=== PATIENT | male | born 1995 | race Caucasian/White ===

== ENCOUNTER 2023-11-01 08:53 | Emergency (ER) | payer MEDICAID, SELFPAY ==
[2023-11-01 09:00] VITALS: BP 118/78; PULSE 106; RESP 14; TEMP 37.7; O2SAT 97; BMI 28.7
--- NOTE | 2023-11-01 09:25 | XR_ITS ---
Patient: ENE GARCIA Facility:?[facility] Patient ID:?[id number] Site Patient ID:?[id number]. Site :?[id number] Study:?XRay-Chest 2 VIEWS-11/01/2023 10:26:07 AM Ordering Physician:SAWYER Final Report: Indication: Cough Technique: PA and lateral views of the chest. Comparison: None. Findings: Mild peribronchial cuffing. Normal cardiomediastinal silhouette. No focal consolidation, pleural effusions, or visualized pneumothorax. Impression: Mild peribronchial cuffing is compatible with airways infection or inflammation. Dictated by Matt Phillips MD @ 11/01/2023 10:36:40 AM Signed by:?Matt Phillips MD @11/01/2023 10:36:40 AM (Electronic Signature)
--- NOTE | 2023-11-01 09:26 | ED.GENADULT ---
HPI - General Adult General Date Seen: 11/01/23 Chief complaint: Fever Stated complaint: fever since Time Seen by Provider: 11/01/23 09:05 Source: patient and family Mode of arrival: ambulatory Limitations: no limitations History of Present Illness HPI narrative: Patient is a 28-year-old male who has been sick since the or with flu symptoms and fever. His mom is with him and provides much of the history. He does tell me that he has had headache, cough, burning in his chest. His mom says that he was seen at [facility] on the , she was not with him but apparently reviewed all of the paperwork from there, they did a CT and a CT angiogram of his head, chandana blood although she is not sure what tests were done, he reports that they tested for COVID which was negative but did not do other testing. Mom says that he was given Toradol and no other instructions were given. He continues to have fever up to 101.3 just prior to coming into the ER although his temperature is 99.9 here without treatment for fever. He has not had vomiting or diarrhea. No recent travel. He smokes cigarettes, denies drug or alcohol use. No medication allergies although when I suggested giving ibuprofen his mom says that when he was 12 he had vomiting after being given ibuprofen and so she does not give that to him anymore. Related Data Home Medications Medication Instructions Recorded Confirmed No Known Home Medications 11/01/23 11/01/23 Allergies Allergy/AdvReac Type Severity Reaction Status Date / Time No Known Drug Allergies Allergy Verified 11/01/23 09:08 Review of Systems Status of ROS: Reports: 6 or more systems reviewed and unremarkable except as noted in History and below [facility] Social History Smoking Status: Never smoker How often do you have a drink containing alcohol: never AUDIT-C Alcohol total score: 0 Non-prescribed substance use: denies use Exam Narrative: Exam Narrative: Vital signs as noted above. In general, an alert, nontoxic young man. Looks somewhat fatigued. Head: Normocephalic, atraumatic. Eyes: Pupils are equal reactive. Extraocular movements are full. Conjunctivae are normal. ENT: Mucous membranes are moist. Throat is normal. TMs normal bilaterally. Neck: Supple without lymphadenopathy. No stridor. Heart: Mildly tachycardic, regular. No murmur. Lungs: A few scattered rhonchi, no fine crackles, no increased work of breathing or wheezing. Abdomen: Soft and nontender. No organomegaly. Extremities: Well perfused. No edema. No calf tenderness. Pulses intact. Neurologic: Patient is alert and oriented to person and place. Speech is fluent. Face is symmetric. Moves all extremities equally. Affect: Normal. Skin: Warm and dry. Well perfused. Const: Vital Signs, click to edit/add: Vital Signs - 24 hr 11/01/23 09:00 11/01/23 09:41 Temperature 99.9 F H 99.9 F H Pulse Rate [Pulse Oximeter] 106 H 106 H Respiratory Rate 14 14 Blood Pressure [Ri ght Arm] 111/67 Blood Pressure [Ri ght Upper Arm] 118/78 Pulse Oximetry 97 97 Oxygen Delivery Me thod Room Air Room Air Documenting provider has reviewed patient's vital signs: yes Course Course ED Course: Patient presents with flu symptoms for 5-6 days. Overall, symptoms seem likely to be viral, I did review his visit from [facility] on the . They did a CT of the head and a CT angiogram of the head and neck because of complaints of severe headache which was normal. He had a normal CBC, normal metabolic panel, negative COVID, influenza and RSV. I will recheck those just in case there was a false negative, I think that they would feel better if there were an official diagnosis. Will get a chest x-ray to rule out a pneumonia. Tylenol 1000 mg for low-grade fever and aches here. Chest x-ray by my review is negative, final radiology read notes some peribronchial cuffing, no consolidation. His labs remain normal, white blood cell count is 6, normal diff aside from a predominance of monocytes. His metabolic panel shows a CO2 of 34 today, otherwise normal. Viral testing today does show an positive influenza B, certainly consistent with his presentation. Discussed with him this time I think that the cause for all of his symptoms is influenza, no evidence of pneumonia, recommends supportive care, ibuprofen and/or Tylenol, fluids rest. Discussed reasons to return or see primary care such as persistence or worsening of symptoms beyond 10 days, worsening respiratory symptoms, etcetera. Vital Signs Vital signs: Initial Vital Signs Temperature 99.9 F H 11/01/23 09:00 Temperature Source Temporal Artery Scan 11/01/23 09:00 Pulse Rate 106 H 11/01/23 09:00 Pulse Rhythm Regular 11/01/23 09:00 Respiratory Rate 14 11/01/23 09:00 Blood Pressure 118/78 11/01/23 09:00 Blood Pressure Mean 91 11/01/23 09:00 Blood Pressure Position Sitting 11/01/23 09:00 Pulse Oximetry 97 11/01/23 09:00 Oxygen Delivery Method Room Air 11/01/23 09:00 Vital Signs Temperature 99.9 F H 11/01/23 09:00 Pulse Rate 106 H 11/01/23 09:00 Respiratory Rate 14 11/01/23 09:00 Blood Pressure 118/78 11/01/23 09:00 Pulse Oximetry 97 11/01/23 09:00 Oxygen Delivery Method Room Air 11/01/23 09:00 Temperature 99.9 F H 11/01/23 09:41 Pulse Rate 106 H 11/01/23 09:41 Respiratory Rate 14 11/01/23 09:41 Blood Pressure 111/67 11/01/23 09:41 Pulse Oximetry 97 11/01/23 09:41 Oxygen Delivery Method Room Air 11/01/23 09:41 Medications Administered Medications: Discontinued Medications Generic Name Dose Route Start Last Admin Trade Name Edith PRN Reason Stop Dose Admin Acetaminophen 1,000 mg 11/01/23 09:24 11/01/23 09:37 Acetaminophen 500 Mg Tablet PO 11/01/23 09:25 1,000 mg ONCE ONE Administration Medical Decision Making Lab Data Labs: Lab Results 11/01/23 11/01/23 Range/Units 09:35 09:37 WBC 6.11 (4.50-11.00) K/uL RBC 5.48 (4.30-5.90) m/uL Hgb 16.1 (13.5-17.5) gm/dL Hct 48.2 (37.0-53.0) % MCV 88 (80-100) fL MCH 29 (26-34) pg MCHC 33 (32-36) gm/dL RDW Coeff of [place] 11.7 (11.5-15.5) % Plt Count 189 (140-440) K/uL Neut % (Auto) 54.6 (42.0-72.0) % Lymph % (Auto) 31.1 (20-44) % [place] % (Auto) 12.9 H (0.0-11.0) % Eos % (Auto) 0.7 (0.0-7.0) % Baso % (Auto) 0.5 (0.0-3.0) % Neut # (Auto) 3.34 (1.7-7.0) K/uL Lymph # (Auto) 1.90 (0.90-2.90) K/uL [place] # (Auto) 0.80 (0.00-0.90) K/UL Eos # (Auto) 0.04 (0.00-0.50) K/uL Baso # (Auto) 0.03 (0.00-0.30) K/uL Abs Immat Gran (auto) 0.01 (0.00-0.30) K/uL Imm/Tot Granulo (auto) 0.2 % Sodium 136 (135-149) mmol/L Potassium 4.6 (3.6-5.1) mmol/L Chloride 97 (96-114) mmol/L Carbon Dioxide 34 H (20-32) mmol/L Anion Gap 5 L (7-15) mEq/L BUN 8 (5-24) mg/dL Creatinine 1.0 (0.5-1.5) mg/dL Estimated Creat Clear 113.56 Estimated GFR 105 ml/min Glucose 96 (60-115) mg/dL Calcium 9.0 (8.4-10.6) mg/dL SARS-CoV-2 (PCR) Negative SARS-CoV-2 (Negative) Influenza Type A (PCR) Negative PCR FLU A (Negative) Influenza Type B (PCR) POSITIVE PCR FLU B A (Negative) RSV (PCR) Negative PCR RSV (Negative) Discharge Plan Discharge Clinical Impression: Influenza Patient Disposition: Home, Self-Care Condition: Stable Instructions: Influenza (ED) Additional Instructions: Tylenol and or ibuprofen as needed for fever, headache, body aches etcetera. Your influenza testing was negative for [place] but is positive today for influenza B, which I think is the cause of all of your symptoms. Your x-ray does not show evidence of pneumonia. Influenza typically last for 7-10 days, so over the next few days she should feel improved. For persistent or worsening symptoms, return or see your primary clinic. Prescriptions: No Action No Known Home Medications Follow Up/Referrals: Provider,Not a Local [Primary Care Provider] - Stand Alone Forms: [employer] Info Instructions
[2023-11-01] MEDS: ACETAMINOPHEN 500 MG TABLET 1000 MG PO (09:37)
[2023-11-01 09:41] VITALS: BP 111/67; PULSE 106; RESP 14; TEMP 37.7; O2SAT 97
[2023-11-01 09:45] LABS: Basophils Absolute Auto 0.03 K/uL (0.00-0.30); Basophils Percent Auto 0.5 % (0.0-3.0); Eosinophils Absolute Auto 0.04 K/uL (0.00-0.50); Eosinophils Percent Auto 0.7 % (0.0-7.0); Hematocrit 48.2 % (37.0-53.0); Hemoglobin* 16.1 gm/dL (13.5-17.5); Immature Granulocytes Abs Auto 0.01 K/uL (0.00-0.30); Immature Granulocytes Pct Auto 0.2 %; Lymphocytes Percent Auto 31.1 % (20-44); Mean Corpuscular HGB Conc 33 gm/dL (32-36); Mean Corpuscular Hemoglobin 29 pg (26-34); Mean Corpuscular Volume 88 fL (80-100); Monocytes Percent Auto 12.9 % (0.0-11.0); Neutrophils Absolute Auto 3.34 K/uL (1.7-7.0); Neutrophils Percent Auto 54.6 % (42.0-72.0); Platelet Count* 189 K/uL (140-440); RDW Coefficient of Variation % 11.7 % (11.5-15.5); Red Blood Count 5.48 m/uL (4.30-5.90); White Blood Count* 6.11 K/uL (4.50-11.00)
[2023-11-01 09:54] LABS: Slide Review Reflex No
[2023-11-01 10:00] LABS: Chloride* 97 mmol/L (96-114)
[2023-11-01 10:01] LABS: Potassium* 4.6 mmol/L (3.6-5.1); Sodium* 136 mmol/L (135-149)
[2023-11-01 10:03] LABS: Est. Creatinine Clearance* 113.56; Estimated Glomerular Filt Rate 105 ml/min
[2023-11-01 10:04] LABS: Anion Gap 5 mEq/L (7-15); Blood Urea Nitrogen* 8 mg/dL (5-24); Carbon Dioxide* 34 mmol/L (20-32); Glucose* 96 mg/dL (60-115)
[2023-11-01 10:21] LABS: PCR FLU A Negative PCR FLU A (Negative); PCR FLU B POSITIVE PCR FLU B (Negative); PCR RSV Negative PCR RSV (Negative); SARS PCR* Negative SARS-CoV-2 (Negative)
[2023-11-01 11:02] VITALS: BP 118/78; PULSE 106; RESP 14; TEMP 36.1
[2023-11-01 11:16] VITALS: BP 118/78; PULSE 99; RESP 14; TEMP 36.1; O2SAT 97
== END 2023-11-01 11:15 | disposition home or self-care (01) ==
PROVIDERS: Emergency Provider Emergency Medicine
DX: J10.1 Influenza due to other identified influenza virus with other respiratory manifestations (principal)
CPT/HCPCS: 36415; 71046; 80048; 85025; 87631; 99283; 99284; A9270